=== PATIENT | male | born 1975 | race Caucasian/White ===

== ENCOUNTER 2021-07-17 03:58 | Emergency (ER) | payer BC, OTHER ==
[2021-07-17 04:04] VITALS: TEMP 98.9
[2021-07-17] MEDS ORDERED: SODIUM CHLORIDE 0.9% 500 ML 500 ML IV STA (04:17)
--- NOTE | 2021-07-17 04:17 | ED ---
Chest Pain HPI - General Source: patient, RN notes reviewed, old records reviewed Mode of arrival: wheelchair Limitations: no limitations - History of Present Illness MD Complaint: chest pain -: hour(s) Onset: during rest, during exertion Pain Location: substernal Pain Radiation: none Severity: mild Severity scale (1-10): 1 Quality: tightness Consistency: intermittent Improves With: nothing Worsens With: nothing Anginal Symptoms: dyspnea Other Symptoms: palpitations Treatments Prior to Arrival: none <Lan Welsh - Last Filed: 07/17/21 05:52> <Joseluis Hussein - Last Filed: 07/17/21 08:14> - General Chief Complaint: Chest Pain Stated Complaint: Shortness of Breath, dizzy Time Seen by Provider: 07/17/21 04:16 - History of Present Illness Initial Comments: This is a 46-year-old male to ER for evaluation of chest pain dizziness and shortness of breath. History of high blood pressure issues feeling very tingly and his feet tingling in his legs can't stop shaking. Symptoms are relatively sudden onset prior to arrival as he was having overworked tonight. He fell he can calm down was unable to. He still has significant shakes in both his legs and arms currently. Anterior chest pain right over his left side of his chest. The pain is not severe he is not significantly diaphoretic but does feel occasionally hot and the face. No shortness of breath. No recent other complaints (Lan Welsh) - Related Data Home Medications Medication Instructions Recorded Confirmed Omeprazole [PriLOSEC] 20 mg PO AC-[id number] 05/06/15 05/06/15 lisinopriL [Zestril] 7.5 mg PO DAILY 05/06/15 05/06/15 Allergies Allergy/AdvReac Type Severity Reaction Status Date / Time erythromycin base Allergy Rash/Hives Verified 07/17/21 04:01 Penicillins Allergy Rash/Hives Verified 07/17/21 04:01 Review of Systems ROS Other: All systems not noted in ROS Statement are negative. <Lan Welsh - Last Filed: 07/17/21 05:52> ROS Other: All systems not noted in ROS Statement are negative. <Joseluis Hussein - Last Filed: 07/17/21 08:14> ROS Statement: Those systems with pertinent positive or pertinent negative responses have been documented in the HPI. EKG Findings - EKG Comments: EKG Findings:: EKG is sinus rhythm 75 OR 166 QRS 100 QTc 444 <AnithaLan - Last Filed: 07/17/21 05:52> Past Medical History Past Medical History: Hyperlipidemia, Hypertension History of Any Multi-Drug Resistant Organisms: None Reported Past Surgical History: No Surgical Hx Reported Past Psychological History: No Psychological Hx Reported Smoking Status: Never smoker Past Alcohol Use History: Occasional Past Drug Use History: None Reported <AnithaPerrye Berlin Gomez Last Filed: 07/17/21 05:52> General Exam Limitations: no limitations General appearance: alert, in no apparent distress, anxious Head exam: Present: atraumatic, normocephalic, normal inspection Eye exam: Present: normal appearance, PERRL, EOMI. Absent: scleral icterus, conjunctival injection, periorbital swelling ENT exam: Present: normal exam, mucous membranes moist Neck exam: Present: normal inspection. Absent: tenderness, meningismus, lymphadenopathy Respiratory exam: Present: normal lung sounds bilaterally. Absent: respiratory distress, wheezes, rales, rhonchi, stridor Cardiovascular Exam: Present: regular rate, normal rhythm, normal heart sounds. Absent: systolic murmur, diastolic murmur, rubs, gallop, clicks GI/Abdominal exam: Present: soft, normal bowel sounds. Absent: distended, tenderness, guarding, rebound, rigid Extremities exam: Present: normal inspection, full ROM, normal capillary refill. Absent: tenderness, pedal edema, joint swelling, calf tenderness Back exam: Present: normal inspection Neurological exam: Present: alert, oriented X3, CN II-XII intact Psychiatric exam: Present: normal affect, normal mood Skin exam: Present: warm, dry, intact, normal color. Absent: rash <Lan Welsh - Last Filed: 07/17/21 05:52> Course <Lan Welsh - Last Filed: 07/17/21 05:52> Vital Signs 07/17/21 07/17/21 04:02 06:51 Temperature 98.9 F Pulse Rate 78 86 Respiratory 20 16 Rate Blood Pressure 174/94 138/84 O2 Sat by Pulse 100 96 Oximetry - Reevaluation(s) Reevaluation #1: 07/17/21 05:53 Medical record is reviewed (Lan Welsh) Chest Pain MDM <Joseluis Hussein - Last Filed: 07/17/21 08:14> - MDM 6-year-old male with an episode of dyspnea, chest tightness, and shaking extremities. He also had dry mouth. EKG is sinus rhythm without ischemic changes. He had been seen by the previous physician workup was initiated including laboratory testing and imaging. His laboratory testing reveals a mild leukocytosis of uncertain etiology as well as a mildly elevated LDH, otherwise his blood counts and electrolytes are within normal limits. Patient had CT of the chest which was negative for pulmonary embolism, negative for any aortic pathology. CT abdomen did not elicit any acute findings. I did repeat a troponin in the emergency department given the chest tightness. This was also negative. Patient was asymptomatic at the time my evaluation he continued to be asymptomatic until the time of discharge. Return parameters discussed. Patient agreeable with plan. (Joseluis Hussein) Disposition <Lan Welsh - Last Filed: 07/17/21 05:52> Is patient prescribed a controlled substance at d/c from ED?: No Time of Disposition: 08:14 <Joseluis Hussein - Last Filed: 07/17/21 08:14> Clinical Impression: Chest pain Disposition: HOME SELF-CARE Condition: Good Instructions (If sedation given, give patient instructions): Chest Pain (ED) Referrals: Lan Campbell DO [Primary Care Provider] - 1-2 days
[2021-07-17 06:06] LABS: Basophils # (A) 0.1 k/uL (0-0.2); Basophils % (A) 0 %; Eosinophils # (A) 0.1 k/uL (0-0.7); Eosinophils % (A) 0 %; HCT 44.2 % (39.0-53.0); HGB 15.6 gm/dL (13.0-17.5); Lymphocytes # (A) 1.5 k/uL (1.0-4.8); Lymphocytes % (A) 10 %; MCH 31.2 pg (25.0-35.0); MCHC 35.4 g/dL (31.0-37.0); MCV 88.2 fL (80.0-100.0); Mean Platelet Volume 7.1; Monocytes # (A) 0.8 k/uL (0-1.0); Monocytes % (A) 6 %; Neutrophils # (A) 11.7 k/uL (1.3-7.7); Neutrophils % (A) 82 %; Platelet Count 313 k/uL (150-450); RBC 5.01 m/uL (4.30-5.90); RDW 13.2 % (11.5-15.5); WBC 14.3 k/uL (3.8-10.6)
[2021-07-17 06:19] LABS: Partial Thromboplastin Time 25.9 sec (22.0-30.0); Prothrombin Time 10.4 sec (9.0-12.0)
[2021-07-17 06:29] LABS: ALT 34 U/L (4-49); African American GFR (CKD) >90 (>60 ml/min/1.73 sqM); Anion Gap 10 mmol/L; Blood Urea Nitrogen 17 mg/dL (9-20); Carbon Dioxide 22 mmol/L (22-30); Chloride 108 mmol/L (98-107); Glucose 105 mg/dL (74-99); Lipase 99 U/L (23-300); Non-African American GFR(CKD) 83 (>60 ml/min/1.73 sqM); Sodium 140 mmol/L (137-145); Total Bilirubin 1.2 mg/dL (0.2-1.3)
[2021-07-17 06:34] LABS: AST 39 U/L (17-59); Albumin 4.6 g/dL (3.5-5.0); Potassium 4.3 mmol/L (3.5-5.1); Total Protein 7.8 g/dL (6.3-8.2)
[2021-07-17 06:35] LABS: Alkaline Phosphatase 54 U/L (38-126); LDH 685 U/L (313-618); Magnesium 1.9 mg/dL (1.6-2.3)
[2021-07-17 07:28] LABS: C Reactive Protein 0.8 mg/dL (<1.0)
--- NOTE | 2021-07-17 07:30 | CT ---
EXAM: CT Angiography Chest With Intravenous Contrast CLINICAL HISTORY: Chest pain. TECHNIQUE: Axial computed tomographic angiography images of the chest with intravenous contrast. CTDI is 9.87 mGy and DLP is 417.2 mGy-cm. This CT exam was performed using one or more of the following dose reduction techniques: automated exposure control, adjustment of the mA and/or kV according to patient size, and/or use of iterative reconstruction technique. MIP reconstructed images were created and reviewed. COMPARISON: No relevant prior studies available. FINDINGS: Pulmonary arteries: Unremarkable. No pulmonary embolism. Aorta: No acute findings. No thoracic aortic aneurysm. No dissection. Lungs: No evidence of airspace consolidation. No pulmonary edema. Discoid atelectasis or scarring seen in both lower lobes as well as within the lingula.. Pleural space: Unremarkable. No significant effusion. No pneumothorax. Heart: Unremarkable. No cardiomegaly. No significant pericardial effusion. No evidence of RV dysfunction. Bones/joints: No acute fracture. No dislocation. Soft tissues: Unremarkable. Lymph nodes: Unremarkable. No enlarged lymph nodes. IMPRESSION: No evidence of pulmonary embolism. No thoracic aortic aneurysmal dilatation or dissection.
--- NOTE | 2021-07-17 07:38 | CT ---
EXAM: CT Abdomen and Pelvis With Intravenous Contrast CLINICAL HISTORY: Reason: pain TECHNIQUE: Axial computed tomography images of the abdomen and pelvis with intravenous contrast. CTDI is 25.5 mGy and DLP is 1278.8 mGy-cm. This CT exam was performed using one or more of the following dose reduction techniques: automated exposure control, adjustment of the mA and/or kV according to patient size, and/or use of iterative reconstruction technique. COMPARISON: No relevant prior studies available. FINDINGS: ABDOMEN: Liver: Unremarkable. No mass. Gallbladder and bile ducts: The gallbladder is surgically absent. No ductal dilation. Pancreas: Unremarkable. No mass. No ductal dilation. Spleen: Unremarkable. No splenomegaly. Adrenals: Unremarkable. No mass. Kidneys and ureters: Unremarkable. No solid mass. No hydronephrosis. Stomach and bowel: Unremarkable. No obstruction. No mucosal thickening. PELVIS: Appendix: No findings to suggest acute appendicitis. Bladder: Unremarkable. No mass. Reproductive: Unremarkable as visualized. ABDOMEN and PELVIS: Intraperitoneal space: Unremarkable. No free air. No significant fluid collection. Bones/joints: No acute fracture. No dislocation. Soft tissues: Unremarkable. Vasculature: Unremarkable. No abdominal aortic aneurysm. Lymph nodes: Unremarkable. No enlarged lymph nodes. IMPRESSION: No acute inflammatory or obstructive process is identified within the abdomen or pelvis.
[2021-07-17 08:26] VITALS: BP 125/85; PULSE 75; RESP 18
== END 2021-07-17 08:25 | disposition home or self-care (01) ==
LOC: EC 03:58
DX: R07.9 Chest pain, unspecified (principal); E78.5 Hyperlipidemia, unspecified; I10 Essential (primary) hypertension; Z72.89 Other problems related to lifestyle; Z79.899 Other long term (current) drug therapy
CPT/HCPCS: 36415; 93005; 85379; 83880; 80053; 83615; 83690; 83735; 84484; 85025; 85610; 85730; 86140; 87635; 71275; 74177; 99285; 96360; 96361; Q9967